=== PATIENT | female | born 1935 | race Caucasian/White ===

== ENCOUNTER 2022-01-18 17:08 | Emergency (ER) | payer MEDICARE, BC ==
[~2022-01-18] VITALS: Ht 162.6 cm; Wt 61.2 kg
--- NOTE | 2022-01-18 17:50 | NUR ---
Pt. walked to the ER accompanied by friend c/o of dizzinness, weakness and near syncopal episode while she was at a social event with her friend. Pt reports similar symptoms started last night when she got up to the bathroom. PRISCILA evaluated patient for MSE.
[2022-01-18] MEDS ORDERED: LEVOTHYROXIN PO (17:51)
[2022-01-18] MEDS ORDERED: IV NORMAL SALINE 1000 ML BAG IV ONE (18:00)
[2022-01-18 18:43] LABS: HEMATOCRIT 40.4 % (31.2-41.9); MEAN CORPUSCULAR HEMOGLOBIN 30.1 uug (24.7-32.8); PLATELET COUNT (AUTO) 216 K/uL (179-408)
[2022-01-18 19:03] LABS: THYROID STIMULATING HORMONE 2.46 mIU/mL (0.358-3.740)
--- NOTE | 2022-01-18 19:18 | NUR ---
Report given to Monika CLAY
[2022-01-18 19:20] LABS: CARBON DIOXIDE 28 mmol/L (21-32); CHLORIDE 105 mmol/L (98-107); CREATININE 0.9 mg/dL (0.6-1.3); GLUCOSE 99 mg/dL (74-106); UREA NITROGEN, BLOOD 15 mg/dL (7-18)
[2022-01-18 19:29] LABS: ALANINE AMINOTRANSFERASE 22 U/L (14-59); ALKALINE PHOSPHATASE 58 U/L (50-136); ASPARTATE AMINOTRANSFERASE 18 U/L (15-37); BILIRUBIN,DIRECT 0.1 mg/dL (0.0-0.2); BILIRUBIN,TOTAL 0.6 mg/dL (0.2-1.0); TOTAL PROTEIN, SERUM 7.4 g/dL (6.4-8.2)
[2022-01-18 19:39] LABS: MAGNESIUM 2.2 mg/dL (1.8-2.4); PHOSPHOROUS 2.9 mg/dL (2.5-4.9)
[2022-01-18 19:53] LABS: *BILIRUBIN,URIN NEGATIVE (NEGATIVE); *CLARITY,URINE CLEAR (CLEAR); *COLOR,URINE YELLOW (YELLOW); *KETONES,URINE NEGATIVE (NEGATIVE); *UROBILINOGEN,URINE 0.2 E.U./dl (NORMAL); LEUKOCYTE ESTERASE ,URINE TRACE (NEGATIVE); NITRITE, URINE NEGATIVE (NEGATIVE); UGLUCOSE NEGATIVE (NEGATIVE)
[2022-01-18 19:56] LABS: *BLOOD, URINE TRACE (NEGATIVE)
--- NOTE | 2022-01-18 20:31 | NUR ---
Patient discharged to home in stable condition. Written and verbal after care instructions given. Patient verbalizes understanding of instructions. Stressed follow up or return to ER for worsening s/s. Patient was escorted out via wheelchair with Monika CLAY. Patient is A/Ox4 NAD noted and was accompained by SO.
[2022-01-18 20:33] VITALS: BP 110/87
[2022-01-18 22:59] LABS: BACTERIA,URINE NONE SEEN /HPF (NONE SEEN); RBC,URINE 0-3 /HPF (0-3); SQUAMOUS EPITHELIAL CELL,UR FEW /HPF (NONE SEEN); WBC,URINE 0-3 /HPF (0-3)
== END 2022-01-18 20:30 | disposition home or self-care (01) ==
LOC: ER 17:08
DX: R55 Syncope and collapse (principal); E89.0 Postprocedural hypothyroidism; Z79.890 Hormone replacement therapy
CPT/HCPCS: 99285; 96360; 71045; 80076; 80048; 81001; 82962; 83880; 83735; 84100; 84443; 85025; 84484 ×2; 36415; 93005; J7040; A4663